=== PATIENT | female | born 1970 | race Hispanic/Latino ===

== ENCOUNTER 2021-03-22 08:38 | Emergency (ER) | payer SELFPAY ==
[~2021-03-22 08:38] MED LIST: BROMOCRIPTIN2.5 M1 PO; CETIRIZINE10 MG PO; MOTRIN800 MG/TAB PO; OXYCODONE HCL5 MG PO; PERCOCET 5/321 COMBO PO; [UNRECOGNIZED DRUG - REMARK] PO
[2021-03-22 09:09] LABS: IMMATURE GRANULOCYTES 0.4 % (0.0-5.0); MEAN CORPUSCULAR HGB 30.3 pG CALC (26.0-32.0); MEAN CORPUSCULAR HGB CONC 32.6 g/dL CAL (32.0-36.0); NEUT# 14.5 thou/uL (2.00-7.15); RED BLOOD COUNT 4.66 mill/uL (4.20-5.60); RED CELL DISTRI WIDTH 12.2 % (11.5-15.5)
[2021-03-22 09:11] LABS: HEMATOCRIT 43.2 % (37.0-47.0); HEMOGLOBIN 14.1 g/dl (12.0-16.0); MEAN CELL VOLUME 92.7 fL CALC (80.0-100.0)
[2021-03-22 09:24] LABS: ALBUMIN 4.5 g/dL (3.2-5.0); ALKALINE PHOSPHATASE 133 u/l (38-126); ANION GAP 13 (6-22 (CALC)); BUN 15 mg/dL (7-17); BUN/CREATININE RATIO 35 (12-20 (CALC)); CARBON DIOXIDE 22 mmol/l (22-30); CHLORIDE 105 mmol/l (95-108); CREATININE 0.4 mg/dL (0.5-1.0); GFR > 60 ML/MIN (>=60 (CALC)); GFR FOR AFR.AMER. > 60 ML/MIN (>=60 (CALC)); LIPASE 192 u/l (23-300); POTASSIUM 3.9 mmol/l (3.5-5.1); SGOT/AST 59 u/l (14-36); SODIUM 136 mmol/l (137-146); TOTAL PROTEIN 8.7 g/dL (6.3-8.2)
[2021-03-22 09:25] LABS: BILIRUBIN, TOTAL 0.8 mg/dL (0.0-1.4)
[2021-03-22] MEDS ORDERED: METFORMIN500 M2 PO (09:35)
[2021-03-22 09:47] LABS: URINE BILIRUBIN - DIPSTICK NEGATIVE (NEGATIVE); URINE BLOOD DIPSTICK LARGE (NEGATIVE); URINE GLUCOSE - DIPSTICK NEGATIVE (NEGATIVE); URINE KETONE NEGATIVE (NEGATIVE); URINE PH 7.5 (4.5-8.0); URINE PROTEIN - DIPSTICK 100 mg/dL (NEG-TRACE); URINE UROBILINOGEN - DIPSTICK 0.2 E.U./dL (0.2)
[2021-03-22 09:53] LABS: URINE COLOR AMBER; URINE LEUK ESTERASE MODERATE (NEGATIVE); URINE NITRITE - DIPSTICK NEGATIVE (Negative)
[2021-03-22 10:03] LABS: URINE SQUAMOUS EPITHELIAL CELL FEW EPI/hpf (0-FEW)
[2021-03-22] MEDS ORDERED: CEPHALEXIN500 MG PO (10:16)
[2021-03-22 10:21] VITALS: BP 122/77
== END 2021-03-22 10:24 | disposition home or self-care (01) | DRG 690 ==
LOC: ED 08:38
PROVIDERS: Family Medicine
DX: N39.0 Urinary tract infection, site not specified (principal); E11.9 Type 2 diabetes mellitus without complications; B96.20 Unspecified Escherichia coli [E. coli] as the cause of diseases classified elsewhere; Z79.84 Long term (current) use of oral hypoglycemic drugs; Z87.442 Personal history of urinary calculi

== ENCOUNTER 2024-07-30 09:02 | Emergency (ER) | payer SELFPAY ==
[~2024-07-30] VITALS: Ht 157.5 cm; Wt 84.4 kg
[~2024-07-30 09:02] MED LIST changes: +CEPHALEXIN500 MG PO; +MELOXICAM7.5 MG PO; +METFORMIN500 M2 PO; +VITAMIN D2000 UNIT PO
[2024-07-30 09:11] VITALS: BP 143/80
[2024-07-30 09:15] VITALS: BP 142/61
[2024-07-30] MEDS ORDERED: PREDNISONE20 MG PO (09:23)
[2024-07-30] MEDS ORDERED: VALACYCLOVIR HCL1 GM PO (09:23)
[2024-07-30] MEDS ORDERED: predniSONE 20 MG/TAB PO ONE (09:25)
[2024-07-30 09:30] VITALS: BP 115/60
[2024-07-30 09:42] VITALS: BP 115/60
== END 2024-07-30 09:40 | disposition home or self-care (01) | DRG 74 ==
LOC: ED 09:02
DX: G51.0 Bell's palsy (principal); E11.9 Type 2 diabetes mellitus without complications; E66.9 Obesity, unspecified; Z79.84 Long term (current) use of oral hypoglycemic drugs